=== PATIENT | male | born 1970 | race Native Hawaiian/Other Pacific Islander ===

== ENCOUNTER 2022-12-04 11:00 | Outpatient (CLI) | payer OTHER | END 2022-12-04 19:07 | disposition home or self-care (01) | LOC: US 11:00 | PROVIDERS: ATTEND Nurse Practitioner | DX: Z09 Encounter for follow-up examination after completed treatment for conditions other than malignant neoplasm (principal); Z86.718 Personal history of other venous thrombosis and embolism ==